=== PATIENT | male | born 1970 | race Two or more races ===

== ENCOUNTER 2019-12-30 21:39 | Emergency (ER) | payer SELFPAY ==
[~2019-12-30] VITALS: Ht 175.3 cm; Wt 117.9 kg
[2019-12-31 01:58] VITALS: BP 154/88
[2019-12-31] MEDS ORDERED: cefTRIAXone SOD 1,000 MG VL IM ONE (02:15)
== END 2019-12-31 02:53 | disposition home or self-care (01) ==
LOC: ER 21:43
DX: H66.005 Acute suppurative otitis media without spontaneous rupture of ear drum, recurrent, left ear (principal); H60.92 Unspecified otitis externa, left ear
CPT/HCPCS: 96372; 99283; J0696